=== PATIENT | female | born 1990 | race Caucasian/White ===

== ENCOUNTER 2022-01-20 09:56 | Emergency (ER) | payer SELFPAY ==
[~2022-01-20] VITALS: Ht 160 cm; Wt 53.1 kg
[2022-01-20 10:01] VITALS: BP 123/55
== END 2022-01-20 10:20 | disposition left against medical advice (07) ==
LOC: MED 09:56
DX: R06.02 Shortness of breath (principal); Z53.21 Procedure and treatment not carried out due to patient leaving prior to being seen by health care provider